=== PATIENT | male | born 2000 | race Caucasian/White ===

== ENCOUNTER 2020-03-24 11:24 | Inpatient (IN) | payer BC, MEDICAID ==
[~2020-03-24] VITALS: Ht 170.2 cm; Wt 68.1 kg
[2020-03-24 12:47] LABS: BASOPHILS % (AUTO) 0.5 % (0.0-2.0); EOSINOPHILS % (AUTO) 0.5 % (1.0-6.0); HEMATOCRIT 47.6 % (41-53); HEMOGLOBIN 15.9 g/dL (13.5-17.5); LYMPHOCYTES # (AUTO) 1.5 K/uL (1.0-4.8); LYMPHOCYTES % (AUTO) 16.1 % (22.0-44.0); MEAN CORPUSCULAR HEMOGLOBIN 29.7 pg (26.0-34.0); MEAN CORPUSCULAR HGB CONC 33.5 G/dL (31.0-37.0); MEAN CORPUSCULAR VOLUME 89 fL (80-100); MONOCYTES # (AUTO) 0.5 K/uL (0.1-1.0); MONOCYTES % (AUTO) 5.8 % (2.0-9.0); NEUTROPHILS % (AUTO) 77.1 % (40.0-70.0); PLATELET COUNT (AUTO) 238 K/uL (150-450); RED BLOOD CELL COUNT(AUTO) 5.36 MIL/uL (4.50-5.90); RED CELL DISTRIBUTION WIDTH 13.7 % (11.5-14.5)
[2020-03-24 12:55] LABS: ANION GAP 8 mmol/L (8-16); CALCIUM, TOTAL 9.4 mg/dL (8.8-10.5); CARBON DIOXIDE 29 mmol/L (22-29); CHLORIDE 100 mmol/L (98-107); CREATININE 0.92 mg/dL (0.60-1.30); GLOMERULAR FILTR. RATE CALC > 60 mL/min (>60); GLUCOSE,RANDOM 95 mg/dL (70-110); POTASSIUM 3.9 mmol/L (3.5-5.1); SODIUM SERUM 137 mmol/L (136-145); UREA NITROGEN, BLOOD 15 mg/dL (7-18)
[2020-03-24] MEDS ORDERED: RISP1TAB27 PO (12:58)
[2020-03-24] MEDS ORDERED: CLON-592 PO (12:58)
[2020-03-24 13:03] LABS: ALANINE AMINOTRANSFERASE 30 U/L (12-78); ALBUMIN 4.4 g/dL (3.4-5.0); ALKALINE PHOSPHATASE 72 U/L (46-116); ASPARTATE AMINOTRANSFERASE 19 U/L (15-37); BILIRUBIN,TOTAL 0.2 mg/dL (0.1-1.0); TOTAL PROTEIN, SERUM 8.2 g/dL (6.4-8.2)
[2020-03-24 13:23] LABS: AMPHET/METH SCREEN,URINE NEGATIVE (NEGATIVE); BARBITURATE SCREEN, URINE NEGATIVE (NEGATIVE); BENZODIAZEPINES SCREEN,URINE NEGATIVE (NEGATIVE); CANNABINOID SCREEN,URINE NEGATIVE (NEGATIVE); COCAINE SCREEN,URINE NEGATIVE (NEGATIVE); METHADONE SCREEN, URINE NEGATIVE (NEGATIVE); OPIATE SCREEN,URINE NEGATIVE (NEGATIVE)
[2020-03-24 13:24] LABS: PHENCYCLIDINE SCREEN,URINE NEGATIVE (NEGATIVE)
[2020-03-24] MEDS ORDERED: HALOPERIDOL 5 MG TABLET PO PRN (16:00)
[2020-03-24] MEDS ORDERED: LORazepam 2 MG TABLET PO PRN (16:00)
[2020-03-24] MEDS ORDERED: ZOLPIDEM TARTRATE 10 MG TABLET PO PRN (16:00)
[2020-03-24 18:25] VITALS: BP 115/74
[2020-03-25 06:55] LABS: CHOL/HDL RATIO 4.6 (4.2-7.3)
[2020-03-25 08:00] VITALS: BP 102/60
[2020-03-25] MEDS ORDERED: MAG HYDROX/AL HYDROX/SIMETH ES 30 ML SUSPENSION UDCUP PO PRN (08:00)
[2020-03-25] MEDS ORDERED: IBUPROFEN 400 MG TABLET PO PRN (08:00)
[2020-03-25] MEDS ORDERED: NICOTINE 14 MG/24 HOUR PATCH TD PRN (08:00)
[2020-03-25] MEDS ORDERED: LOPERAMIDE HCL 2 MG CAPSULE PO PRN (08:00)
[2020-03-25] MEDS ORDERED: PETROLATUM,WHITE 28 GM JELLY TP PRN (08:00)
[2020-03-25] MEDS ORDERED: ACETAMINOPHEN 325 MG TABLET PO PRN (08:00)
[2020-03-25] MEDS ORDERED: ONDANSETRON HCL 4 MG TABLET PO PRN (08:00)
[2020-03-25] MEDS ORDERED: MAGNESIUM HYDROXIDE SUSPENSION 30 ML UDCUP PO PRN (08:00)
[2020-03-25] MEDS ORDERED: CloNIDine HCL 0.1 MG TABLET PO PRN (08:00)
[2020-03-25] MEDS ORDERED: GuaiFENesin/D-METHORPHAN [SUGAR-FREE] 200-20MG/10 ML SYRUP UDCUP PO PRN (08:00)
[2020-03-25] MEDS ORDERED: DOCUSATE SODIUM 100 MG CAPSULE PO PRN (08:00)
[2020-03-25] MEDS ORDERED: ALBUTEROL SULFATE HFA 90 MCG/PUFF 8 GM INHALER IH PRN (08:00)
[2020-03-25 16:44] VITALS: BP 116/77
[2020-03-25] MEDS: RisperiDONE 1 MG TABLET PO SCH (20:09)
[2020-03-26 08:00] VITALS: BP 103/69
[2020-03-26] MEDS: RisperiDONE 1 MG TABLET PO SCH ×2 (09:25→21:04)
[2020-03-26 16:30] VITALS: BP 145/83
[2020-03-27 08:57] VITALS: BP 140/67
[2020-03-27] MEDS: RisperiDONE 1 MG TABLET PO SCH ×2 (09:00→21:08)
[2020-03-27 16:43] VITALS: BP 134/85
[2020-03-28] MEDS: RisperiDONE 1 MG TABLET PO SCH ×2 (09:08→20:45)
[2020-03-28 09:27] VITALS: BP 122/65
[2020-03-28 16:30] VITALS: BP 142/88
[2020-03-29 08:00] VITALS: BP 118/74
[2020-03-29] MEDS: RisperiDONE 1 MG TABLET PO SCH (11:15)
[2020-03-29] MEDS ORDERED: RISP1TAB27 PO ×2 (12:56→12:57)
== END 2020-03-29 15:45 | disposition home or self-care (01) | DRG 885 ==
LOC: EMS 11:32 → 3EI 15:56
PROVIDERS: ADMIT Psychiatry & Neurology Child & Adolescent Psychiatry; ATTEND Psychiatry & Neurology Child & Adolescent Psychiatry
DX: F20.0 Paranoid schizophrenia (principal); G44.209 Tension-type headache, unspecified, not intractable; E78.5 Hyperlipidemia, unspecified; Z79.899 Other long term (current) drug therapy; R10.13 Epigastric pain
CPT/HCPCS: G0480

== ENCOUNTER 2020-10-05 11:21 | Inpatient (IN) | payer BC, MEDICAID, OTHER ==
[~2020-10-05] VITALS: Ht 172.7 cm; Wt 73.5 kg
[~2020-10-05 11:21] MED LIST: RISP1TAB48 PO
[2020-10-05 12:14] LABS: BASOPHILS % (AUTO) 0.5 % (0.0-2.0); EOSINOPHILS % (AUTO) 1.1 % (1.0-6.0); HEMOGLOBIN 16.9 g/dL (13.5-17.5); LYMPHOCYTES # (AUTO) 1.2 K/uL (1.0-4.8); LYMPHOCYTES % (AUTO) 13.7 % (22.0-44.0); MEAN CORPUSCULAR HEMOGLOBIN 29.4 pg (26.0-34.0); MEAN CORPUSCULAR HGB CONC 35.2 G/dL (31.0-37.0); MEAN CORPUSCULAR VOLUME 84 fL (80-100); MONOCYTES # (AUTO) 0.9 K/uL (0.1-1.0); MONOCYTES % (AUTO) 10.4 % (2.0-9.0); NEUTROPHILS # (AUTO) 6.6 K/uL (1.8-7.7); NEUTROPHILS % (AUTO) 74.3 % (40.0-70.0); PLATELET COUNT (AUTO) 290 K/uL (150-450); RED BLOOD CELL COUNT(AUTO) 5.74 MIL/uL (4.50-5.90); RED CELL DISTRIBUTION WIDTH 13.3 % (11.5-14.5)
[2020-10-05 12:27] LABS: ANION GAP 17 mmol/L (8-16); CALCIUM, TOTAL 9.4 mg/dL (8.8-10.5); CARBON DIOXIDE 18 mmol/L (22-29); CHLORIDE 102 mmol/L (98-107); CREATININE 0.97 mg/dL (0.60-1.30); GLOMERULAR FILTR. RATE CALC > 60 mL/min (>60); GLUCOSE,RANDOM 94 mg/dL (70-110); POTASSIUM 3.6 mmol/L (3.5-5.1); SODIUM SERUM 137 mmol/L (136-145); UREA NITROGEN, BLOOD 14 mg/dL (7-18)
[2020-10-05] MEDS ORDERED: LORazepam 1 MG TABLET PO ONE (12:30)
[2020-10-05 12:39] LABS: ALANINE AMINOTRANSFERASE 50 U/L (12-78); ALBUMIN 4.5 g/dL (3.4-5.0); ALKALINE PHOSPHATASE 87 U/L (46-116); ASPARTATE AMINOTRANSFERASE 66 U/L (15-37); BILIRUBIN,TOTAL 0.5 mg/dL (0.1-1.0); TOTAL PROTEIN, SERUM 8.4 g/dL (6.4-8.2)
[2020-10-05 13:34] LABS: COVID AG,FIA SOURCE NASOPHARYNGEAL
[2020-10-05] MEDS ORDERED: HALOPERIDOL 5 MG TABLET PO PRN (14:45)
[2020-10-05] MEDS ORDERED: ZOLPIDEM TARTRATE 10 MG TABLET PO PRN (14:45)
[2020-10-05 15:01] LABS: AMPHET/METH SCREEN,URINE NEGATIVE (NEGATIVE); BARBITURATE SCREEN, URINE NEGATIVE (NEGATIVE); BENZODIAZEPINES SCREEN,URINE NEGATIVE (NEGATIVE); CANNABINOID SCREEN,URINE NEGATIVE (NEGATIVE); COCAINE SCREEN,URINE NEGATIVE (NEGATIVE); METHADONE SCREEN, URINE NEGATIVE (NEGATIVE); OPIATE SCREEN,URINE NEGATIVE (NEGATIVE)
[2020-10-05 15:05] LABS: PHENCYCLIDINE SCREEN,URINE NEGATIVE (NEGATIVE)
[2020-10-05 17:50] VITALS: BP 144/102
[2020-10-05 20:16] VITALS: BP 134/91
[2020-10-06 05:09] VITALS: BP 122/76
[2020-10-06] MEDS ORDERED: DOCUSATE SODIUM 100 MG CAPSULE PO PRN (08:00)
[2020-10-06] MEDS ORDERED: ONDANSETRON HCL 4 MG TABLET PO PRN (08:00)
[2020-10-06] MEDS ORDERED: CloNIDine HCL 0.1 MG TABLET PO PRN (08:00)
[2020-10-06] MEDS ORDERED: NICOTINE 14 MG/24 HOUR PATCH TD PRN (08:00)
[2020-10-06] MEDS ORDERED: MAG HYDROX/AL HYDROX/SIMETH ES 30 ML SUSPENSION UDCUP PO PRN (08:00)
[2020-10-06] MEDS ORDERED: GuaiFENesin/D-METHORPHAN [SUGAR-FREE] 200-20MG/10 ML SYRUP UDCUP PO PRN (08:00)
[2020-10-06] MEDS ORDERED: PETROLATUM,WHITE 28 GM JELLY TP PRN (08:00)
[2020-10-06] MEDS ORDERED: ALBUTEROL SULFATE HFA 90 MCG/PUFF 8 GM INHALER IH PRN (08:00)
[2020-10-06] MEDS ORDERED: ACETAMINOPHEN 325 MG TABLET PO PRN (08:00)
[2020-10-06] MEDS ORDERED: MAGNESIUM HYDROXIDE SUSPENSION 30 ML UDCUP PO PRN (08:00)
[2020-10-06] MEDS ORDERED: LOPERAMIDE HCL 2 MG CAPSULE PO PRN (08:00)
[2020-10-06] MEDS ORDERED: IBUPROFEN 400 MG TABLET PO PRN (08:00)
[2020-10-06 08:27] VITALS: BP 132/84
[2020-10-06 09:12] LABS: CHOL/HDL RATIO 3.1 (4.2-7.3)
[2020-10-06] MEDS: RisperiDONE 1 MG TABLET PO SCH ×2 (13:34→21:30)
[2020-10-06 16:17] VITALS: BP 139/83
[2020-10-07 04:18] VITALS: BP 128/78
[2020-10-07 08:18] VITALS: BP 141/78
[2020-10-07] MEDS: RisperiDONE 1 MG TABLET PO SCH ×2 (09:12→20:32)
[2020-10-07] MEDS: LORazepam 2 MG TABLET PO PRN (09:12)
[2020-10-07 16:28] VITALS: BP 130/90
[2020-10-08 03:39] VITALS: BP 121/73
[2020-10-08 08:44] VITALS: BP 146/90
[2020-10-08] MEDS: RisperiDONE 1 MG TABLET PO SCH ×2 (09:18→21:10)
[2020-10-08 16:14] VITALS: BP 140/80
[2020-10-09 02:58] VITALS: BP 126/81
[2020-10-09 08:47] VITALS: BP 130/80
[2020-10-09] MEDS: LORazepam 2 MG TABLET PO PRN (16:38)
[2020-10-09 18:01] VITALS: BP 127/73
[2020-10-09] MEDS: RisperiDONE 2 MG TABLET PO SCH (22:07)
[2020-10-10 05:31] VITALS: BP 123/81
[2020-10-10] MEDS: RisperiDONE 2 MG TABLET PO SCH ×2 (09:10→20:42)
[2020-10-10 09:27] VITALS: BP 146/91
[2020-10-10 16:16] VITALS: BP 132/84
[2020-10-11 06:34] VITALS: BP 129/81
[2020-10-11] MEDS: RisperiDONE 2 MG TABLET PO SCH ×2 (08:10→21:38)
[2020-10-11 08:55] VITALS: BP 133/85
[2020-10-11 16:24] VITALS: BP 143/84
[2020-10-12 04:23] VITALS: BP 127/74
[2020-10-12 08:09] VITALS: BP 140/88
[2020-10-12] MEDS: RisperiDONE 2 MG TABLET PO SCH ×2 (09:10→20:33)
[2020-10-12 16:20] VITALS: BP 140/80
[2020-10-13 06:32] VITALS: BP 135/81
[2020-10-13 08:36] VITALS: BP 138/81
[2020-10-13] MEDS: RisperiDONE 2 MG TABLET PO SCH (09:25)
[2020-10-13] MEDS ORDERED: RISP2TAB76 PO (13:47)
[2020-10-13 16:32] VITALS: BP 140/80
== END 2020-10-13 17:00 | disposition home or self-care (01) | DRG 750 ==
LOC: EMS 11:25 → B3A 15:49
DX: F20.0 Paranoid schizophrenia (principal); G44.209 Tension-type headache, unspecified, not intractable; R74.01 Elevation of levels of liver transaminase levels; E66.01 Morbid (severe) obesity due to excess calories; K59.00 Constipation, unspecified; Z59.0 Homelessness; Z91.14 Patient's other noncompliance with medication regimen; Z68.24 Body mass index [BMI] 24.0-24.9, adult
CPT/HCPCS: 87426; 99285; G0480

== ENCOUNTER 2021-04-09 19:22 | Emergency (ER) | payer BC, MEDICAID, OTHER ==
[~2021-04-09] VITALS: Ht 172.7 cm; Wt 72.7 kg
[~2021-04-09 19:22] MED LIST changes: -RISP1TAB48 PO; +RISP2TAB76 PO
[2021-04-10] MEDS ORDERED: RisperiDONE 1 MG TABLET PO ONE
[2021-04-10 00:10] VITALS: BP 133/75
== END 2021-04-10 01:05 | disposition home or self-care (01) ==
LOC: EMS 19:24
DX: F41.9 Anxiety disorder, unspecified (principal)
CPT/HCPCS: 99283

== ENCOUNTER 2021-05-31 02:46 | Emergency (ER) | payer OTHER ==
[~2021-05-31] VITALS: Ht 170.2 cm; Wt 81.8 kg
[2021-05-31] MEDS ORDERED: PROP10TA73 PO (03:21)
[2021-05-31] MEDS ORDERED: HALO5TAB23 PO (03:21)
[2021-05-31] MEDS ORDERED: PROP60CA38 PO (03:21)
[2021-05-31] MEDS ORDERED: HYDR50CA9 PO (03:21)
[2021-05-31 03:47] VITALS: BP 129/74
[2021-05-31 03:52] LABS: COVID AG,FIA SOURCE NASOPHARYNGEAL
[2021-05-31 03:58] LABS: BASOPHILS % (AUTO) 0.2 % (0.0-2.0); EOSINOPHILS % (AUTO) 0.3 % (1.0-6.0); HEMATOCRIT 47.3 % (41-53); LYMPHOCYTES # (AUTO) 1.7 K/uL (1.0-4.8); LYMPHOCYTES % (AUTO) 13.4 % (22.0-44.0); MEAN CORPUSCULAR HEMOGLOBIN 29.5 pg (26.0-34.0); MEAN CORPUSCULAR HGB CONC 33.8 G/dL (31.0-37.0); MEAN CORPUSCULAR VOLUME 87 fL (80-100); MONOCYTES # (AUTO) 0.8 K/uL (0.1-1.0); MONOCYTES % (AUTO) 6.1 % (2.0-9.0); NEUTROPHILS # (AUTO) 10.4 K/uL (1.8-7.7); PLATELET COUNT (AUTO) 275 K/uL (150-450); RED BLOOD CELL COUNT(AUTO) 5.43 MIL/uL (4.50-5.90); RED CELL DISTRIBUTION WIDTH 13.1 % (11.5-14.5)
[2021-05-31 04:04] LABS: ANION GAP 8 mmol/L (8-16); CALCIUM, TOTAL 9.1 mg/dL (8.8-10.5); CARBON DIOXIDE 28 mmol/L (22-29); CHLORIDE 103 mmol/L (98-107); CREATININE 0.96 mg/dL (0.60-1.30); GLOMERULAR FILTR. RATE CALC > 60 mL/min (>60); GLUCOSE,RANDOM 104 mg/dL (70-110); POTASSIUM 4.1 mmol/L (3.5-5.1); SODIUM SERUM 139 mmol/L (136-145); UREA NITROGEN, BLOOD 13 mg/dL (7-18)
[2021-05-31 04:09] LABS: ALANINE AMINOTRANSFERASE 25 U/L (12-78); ALBUMIN 4.2 g/dL (3.4-5.0); ALKALINE PHOSPHATASE 71 U/L (46-116); ASPARTATE AMINOTRANSFERASE 16 U/L (15-37); BILIRUBIN,TOTAL 0.6 mg/dL (0.1-1.0); TOTAL PROTEIN, SERUM 8.1 g/dL (6.4-8.2)
[2021-05-31 04:19] LABS: AMPHET/METH SCREEN,URINE NEGATIVE (NEGATIVE); BARBITURATE SCREEN, URINE NEGATIVE (NEGATIVE); BENZODIAZEPINES SCREEN,URINE NEGATIVE (NEGATIVE); CANNABINOID SCREEN,URINE NEGATIVE (NEGATIVE); COCAINE SCREEN,URINE NEGATIVE (NEGATIVE); METHADONE SCREEN, URINE NEGATIVE (NEGATIVE); OPIATE SCREEN,URINE NEGATIVE (NEGATIVE)
[2021-05-31 04:20] LABS: PHENCYCLIDINE SCREEN,URINE NEGATIVE (NEGATIVE)
[2021-05-31] MEDS ORDERED: DiphenhydrAMINE HCL 25 MG CAPSULE PO ONE (05:15)
[2021-05-31] MEDS ORDERED: LORazepam 2 MG/ML VIAL IM ONE (05:30)
[2021-05-31] MEDS ORDERED: LORazepam 2 MG/ML VIAL ONE (05:32)
== END 2021-05-31 06:43 | disposition home or self-care (01) ==
LOC: EMS 02:49
DX: F20.9 Schizophrenia, unspecified (principal); Z79.899 Other long term (current) drug therapy; Z20.822 Contact with and (suspected) exposure to COVID-19
CPT/HCPCS: 36415; 80053; 80307; 85025; 87426; 96372; 99284; G0480; J2060

== ENCOUNTER 2021-12-24 09:16 | Inpatient (IN) | payer MEDICAID, OTHER ==
[~2021-12-24] VITALS: Ht 170.2 cm; Wt 85.0 kg
[~2021-12-24 09:16] MED LIST changes: +HALO5TAB23 PO; +HYDR50CA7 PO; +PROP10TA73 PO; +PROP60CA38 PO
[2021-12-24] MEDS ORDERED: LORazepam 2 MG/ML VIAL IM ONE (09:45)
[2021-12-24] MEDS ORDERED: DiphenhydrAMINE HCL 50 MG/ML VIAL IM ONE (09:45)
[2021-12-24] MEDS ORDERED: HALOPERIDOL LACTATE 5 MG/ML VIAL IM ONE (09:45)
[2021-12-24 09:47] LABS: BASOPHILS % (AUTO) 0.4 % (0.0-2.0); EOSINOPHILS % (AUTO) 1.3 % (1.0-6.0); HEMATOCRIT 47.8 % (41-53); HEMOGLOBIN 16.4 g/dL (13.5-17.5); LYMPHOCYTES # (AUTO) 1.7 K/uL (1.0-4.8); LYMPHOCYTES % (AUTO) 14.3 % (22.0-44.0); MEAN CORPUSCULAR HEMOGLOBIN 29.5 pg (26.0-34.0); MEAN CORPUSCULAR HGB CONC 34.4 G/dL (31.0-37.0); MEAN CORPUSCULAR VOLUME 86 fL (80-100); MONOCYTES # (AUTO) 0.6 K/uL (0.1-1.0); MONOCYTES % (AUTO) 5.2 % (2.0-9.0); NEUTROPHILS # (AUTO) 9.4 K/uL (1.8-7.7); NEUTROPHILS % (AUTO) 78.8 % (40.0-70.0); PLATELET COUNT (AUTO) 288 K/uL (150-450); RED BLOOD CELL COUNT(AUTO) 5.58 MIL/uL (4.50-5.90); RED CELL DISTRIBUTION WIDTH 13.4 % (11.5-14.5)
[2021-12-24 09:56] LABS: ANION GAP 13 mmol/L (8-16); CALCIUM, TOTAL 9.9 mg/dL (8.8-10.5); CARBON DIOXIDE 24 mmol/L (22-29); CHLORIDE 100 mmol/L (98-107); CREATININE 1.05 mg/dL (0.60-1.30); GLOMERULAR FILTR. RATE CALC > 60 mL/min (>60); GLUCOSE,RANDOM 91 mg/dL (70-110); POTASSIUM 3.9 mmol/L (3.5-5.1); SODIUM SERUM 137 mmol/L (136-145); UREA NITROGEN, BLOOD 22 mg/dL (7-18)
[2021-12-24 09:56] LABS: COVID AG,FIA SOURCE NASOPHARYNGEAL
[2021-12-24 10:01] LABS: ALANINE AMINOTRANSFERASE 39 U/L (12-78); ALBUMIN 4.4 g/dL (3.4-5.0); ALKALINE PHOSPHATASE 83 U/L (46-116); ASPARTATE AMINOTRANSFERASE 66 U/L (15-37); TOTAL PROTEIN, SERUM 8.7 g/dL (6.4-8.2)
[2021-12-24 10:06] LABS: AMPHET/METH SCREEN,URINE NEGATIVE (NEGATIVE); BARBITURATE SCREEN, URINE NEGATIVE (NEGATIVE); BENZODIAZEPINES SCREEN,URINE NEGATIVE (NEGATIVE); CANNABINOID SCREEN,URINE NEGATIVE (NEGATIVE); COCAINE SCREEN,URINE NEGATIVE (NEGATIVE); METHADONE SCREEN, URINE NEGATIVE (NEGATIVE); OPIATE SCREEN,URINE NEGATIVE (NEGATIVE)
[2021-12-24 10:07] LABS: PHENCYCLIDINE SCREEN,URINE NEGATIVE (NEGATIVE)
[2021-12-24] MEDS ORDERED: ZOLPIDEM TARTRATE 10 MG TABLET PO PRN (13:45)
[2021-12-24 18:06] VITALS: BP 136/92
[2021-12-25 08:00] VITALS: BP 149/75
[2021-12-25] MEDS ORDERED: LOPERAMIDE HCL 2 MG CAPSULE PO PRN (08:15)
[2021-12-25] MEDS ORDERED: DOCUSATE SODIUM 100 MG CAPSULE PO PRN (08:15)
[2021-12-25] MEDS ORDERED: ACETAMINOPHEN 325 MG TABLET PO PRN (08:15)
[2021-12-25] MEDS ORDERED: PETROLATUM,WHITE 28 GM JELLY TP PRN (08:15)
[2021-12-25] MEDS ORDERED: MAG HYDROX/AL HYDROX/SIMETH ES 30 ML SUSPENSION UDCUP PO PRN (08:15)
[2021-12-25] MEDS ORDERED: GuaiFENesin/D-METHORPHAN [SUGAR-FREE] 200-20MG/10 ML SYRUP UDCUP PO PRN (08:15)
[2021-12-25] MEDS ORDERED: MAGNESIUM HYDROXIDE SUSPENSION 30 ML UDCUP PO PRN (08:15)
[2021-12-25] MEDS ORDERED: NICOTINE 14 MG/24 HOUR PATCH TD PRN (08:15)
[2021-12-25] MEDS ORDERED: ALBUTEROL SULFATE HFA 90 MCG/PUFF 8 GM INHALER IH PRN (08:15)
[2021-12-25] MEDS ORDERED: ONDANSETRON HCL 4 MG TABLET PO PRN (08:15)
[2021-12-25] MEDS ORDERED: IBUPROFEN 400 MG TABLET PO PRN (08:15)
[2021-12-25] MEDS: PROPRANOLOL HCL 10 MG TABLET PO SCH ×4 (10:29→17:00)
[2021-12-25] MEDS ORDERED: PROP60CA2 PO (10:43)
[2021-12-25] MEDS ORDERED: ILOP6TAB2 PO (10:43)
[2021-12-25] MEDS ORDERED: LITH300CRT PO (10:43)
[2021-12-25 16:21] VITALS: BP 119/82
[2021-12-25] MEDS ORDERED: ILOPERIDONE 2 MG TABLET PO SCH (17:00)
[2021-12-25] MEDS ORDERED: LITHIUM CARBONATE 300 MG ER TABLET PO SCH (17:00)
[2021-12-25] MEDS: ILOPERIDONE 4 MG TABLET PO SCH (17:20)
[2021-12-25] MEDS: LITHIUM CARBONATE 450 MG ER TABLET PO SCH (17:21)
[2021-12-26] MEDS: LITHIUM CARBONATE 450 MG ER TABLET PO SCH ×2 (08:25→16:26)
[2021-12-26] MEDS: ILOPERIDONE 4 MG TABLET PO SCH ×2 (08:26→16:26)
[2021-12-26] MEDS: PROPRANOLOL HCL 10 MG TABLET PO SCH ×2 (08:27→16:26)
[2021-12-26 08:35] VITALS: BP 148/93
[2021-12-26] MEDS ORDERED: BENZ1TAB96 PO (12:45)
[2021-12-26] MEDS ORDERED: OMEG-189 PO (12:45)
[2021-12-26 16:05] VITALS: BP 107/70
[2021-12-26] MEDS: HALOPERIDOL 5 MG TABLET PO PRN (19:00)
[2021-12-26] MEDS: LORazepam 2 MG TABLET PO PRN (19:00)
[2021-12-27 08:11] VITALS: BP 132/74
[2021-12-27] MEDS: ILOPERIDONE 4 MG TABLET PO SCH ×2 (09:04→16:31)
[2021-12-27] MEDS: LITHIUM CARBONATE 450 MG ER TABLET PO SCH ×2 (09:05→16:31)
[2021-12-27] MEDS: PROPRANOLOL HCL 10 MG TABLET PO SCH ×2 (09:05→16:31)
[2021-12-27 16:11] VITALS: BP 141/83
[2021-12-27] MEDS: HALOPERIDOL 5 MG TABLET PO PRN (16:34)
[2021-12-27] MEDS: LORazepam 2 MG TABLET PO PRN (16:34)
[2021-12-28] MEDS: ILOPERIDONE 2 MG TABLET PO SCH ×2 (06:48→17:00)
[2021-12-28 08:05] VITALS: BP 117/68
[2021-12-28] MEDS: PROPRANOLOL HCL 10 MG TABLET PO SCH ×2 (08:31→17:00)
[2021-12-28] MEDS: LITHIUM CARBONATE 450 MG ER TABLET PO SCH ×2 (08:31→17:00)
[2021-12-28 16:37] VITALS: BP 129/89
[2021-12-28] MEDS: HALOPERIDOL 5 MG TABLET PO PRN (17:42)
[2021-12-28] MEDS: LORazepam 2 MG TABLET PO PRN (17:42)
[2021-12-29] MEDS: ILOPERIDONE 2 MG TABLET PO SCH ×2 (06:36→16:44)
[2021-12-29 08:00] VITALS: BP 154/86
[2021-12-29] MEDS: LITHIUM CARBONATE 450 MG ER TABLET PO SCH ×2 (09:04→16:44)
[2021-12-29] MEDS: LORazepam 2 MG TABLET PO PRN ×2 (09:05→16:44)
[2021-12-29] MEDS: PROPRANOLOL HCL 10 MG TABLET PO SCH ×2 (09:05→16:44)
[2021-12-29 16:44] VITALS: BP 130/87
[2021-12-29 16:50] VITALS: BP 130/87
[2021-12-30] MEDS: ILOPERIDONE 2 MG TABLET PO SCH ×2 (06:12→16:44)
[2021-12-30 08:04] VITALS: BP 164/92
[2021-12-30 09:00] LABS: BASOPHILS % (AUTO) 0.5 % (0.0-2.0); EOSINOPHILS % (AUTO) 5.5 % (1.0-6.0); HEMATOCRIT 45.9 % (41-53); HEMOGLOBIN 15.6 g/dL (13.5-17.5); LYMPHOCYTES # (AUTO) 1.1 K/uL (1.0-4.8); LYMPHOCYTES % (AUTO) 12.8 % (22.0-44.0); MEAN CORPUSCULAR HEMOGLOBIN 29.2 pg (26.0-34.0); MEAN CORPUSCULAR VOLUME 86 fL (80-100); MONOCYTES # (AUTO) 0.6 K/uL (0.1-1.0); MONOCYTES % (AUTO) 6.6 % (2.0-9.0); NEUTROPHILS # (AUTO) 6.5 K/uL (1.8-7.7); NEUTROPHILS % (AUTO) 74.6 % (40.0-70.0); PLATELET COUNT (AUTO) 234 K/uL (150-450); RED BLOOD CELL COUNT(AUTO) 5.33 MIL/uL (4.50-5.90)
[2021-12-30] MEDS: LITHIUM CARBONATE 450 MG ER TABLET PO SCH (09:18)
[2021-12-30] MEDS: PROPRANOLOL HCL 10 MG TABLET PO SCH ×2 (09:18→16:20)
[2021-12-30] MEDS: LORazepam 2 MG TABLET PO PRN ×2 (09:18→16:20)
[2021-12-30 16:17] VITALS: BP 138/90
[2021-12-30] MEDS: HALOPERIDOL 5 MG TABLET PO PRN (16:20)
[2021-12-30] MEDS: LITHIUM CARBONATE 600 MG CAPSULE PO SCH (18:00)
[2021-12-31 06:29] LABS: COVID AG,FIA SOURCE NASAL SWAB
[2021-12-31] MEDS: PROPRANOLOL HCL 10 MG TABLET PO SCH ×2 (08:08→16:49)
[2021-12-31] MEDS: LITHIUM CARBONATE 600 MG CAPSULE PO SCH ×2 (08:08→16:49)
[2021-12-31] MEDS: ILOPERIDONE 2 MG TABLET PO SCH ×2 (08:09→16:50)
[2021-12-31] MEDS: LORazepam 2 MG TABLET PO PRN ×2 (08:09→16:50)
[2021-12-31 09:22] VITALS: BP 116/80
[2021-12-31 12:05] LABS: BASOPHILS % (AUTO) 0.5 % (0.0-2.0); EOSINOPHILS % (AUTO) 5.1 % (1.0-6.0); HEMATOCRIT 45.4 % (41-53); HEMOGLOBIN 15.5 g/dL (13.5-17.5); LYMPHOCYTES # (AUTO) 1.4 K/uL (1.0-4.8); LYMPHOCYTES % (AUTO) 16.7 % (22.0-44.0); MEAN CORPUSCULAR HEMOGLOBIN 29.5 pg (26.0-34.0); MEAN CORPUSCULAR HGB CONC 34.2 G/dL (31.0-37.0); MEAN CORPUSCULAR VOLUME 86 fL (80-100); MONOCYTES # (AUTO) 0.5 K/uL (0.1-1.0); NEUTROPHILS # (AUTO) 5.9 K/uL (1.8-7.7); NEUTROPHILS % (AUTO) 71.7 % (40.0-70.0); PLATELET COUNT (AUTO) 264 K/uL (150-450); RED BLOOD CELL COUNT(AUTO) 5.27 MIL/uL (4.50-5.90); RED CELL DISTRIBUTION WIDTH 12.9 % (11.5-14.5)
[2021-12-31 16:30] VITALS: BP 104/57
[2021-12-31] MEDS: HALOPERIDOL 5 MG TABLET PO PRN (16:51)
[2022-01-01 08:04] VITALS: BP 111/71
[2022-01-01] MEDS: LITHIUM CARBONATE 600 MG CAPSULE PO SCH ×2 (08:10→16:29)
[2022-01-01] MEDS: PROPRANOLOL HCL 10 MG TABLET PO SCH ×2 (08:10→16:28)
[2022-01-01] MEDS: LORazepam 2 MG TABLET PO PRN ×2 (08:10→16:29)
[2022-01-01] MEDS: ILOPERIDONE 2 MG TABLET PO SCH ×2 (08:11→16:28)
[2022-01-01 08:18] LABS: BASOPHILS % (AUTO) 0.7 % (0.0-2.0); EOSINOPHILS % (AUTO) 6.8 % (1.0-6.0); HEMATOCRIT 45.7 % (41-53); HEMOGLOBIN 15.8 g/dL (13.5-17.5); LYMPHOCYTES # (AUTO) 1.7 K/uL (1.0-4.8); LYMPHOCYTES % (AUTO) 21.8 % (22.0-44.0); MEAN CORPUSCULAR HEMOGLOBIN 29.6 pg (26.0-34.0); MEAN CORPUSCULAR HGB CONC 34.7 G/dL (31.0-37.0); MEAN CORPUSCULAR VOLUME 85 fL (80-100); MONOCYTES # (AUTO) 0.5 K/uL (0.1-1.0); MONOCYTES % (AUTO) 6.6 % (2.0-9.0); NEUTROPHILS % (AUTO) 64.1 % (40.0-70.0); PLATELET COUNT (AUTO) 254 K/uL (150-450); RED BLOOD CELL COUNT(AUTO) 5.36 MIL/uL (4.50-5.90)
[2022-01-01] MEDS: HALOPERIDOL 5 MG TABLET PO PRN (16:29)
[2022-01-01 16:55] VITALS: BP 115/72
[2022-01-01 16:57] VITALS: BP 115/71
[2022-01-02] MEDS: LITHIUM CARBONATE 600 MG CAPSULE PO SCH ×2 (07:25→16:19)
[2022-01-02] MEDS: PROPRANOLOL HCL 10 MG TABLET PO SCH ×2 (07:25→16:19)
[2022-01-02] MEDS: LORazepam 2 MG TABLET PO PRN ×2 (07:25→16:19)
[2022-01-02] MEDS: HALOPERIDOL 5 MG TABLET PO PRN ×2 (07:25→16:19)
[2022-01-02] MEDS: ILOPERIDONE 2 MG TABLET PO SCH ×2 (07:26→16:19)
[2022-01-02 08:35] VITALS: BP 125/63
[2022-01-02 16:14] VITALS: BP 103/64
[2022-01-03 09:08] VITALS: BP 116/97
[2022-01-03] MEDS: ILOPERIDONE 2 MG TABLET PO SCH ×2 (10:14→17:13)
[2022-01-03] MEDS: PROPRANOLOL HCL 10 MG TABLET PO SCH ×2 (10:14→17:13)
[2022-01-03] MEDS: LORazepam 2 MG TABLET PO PRN ×2 (10:14→14:14)
[2022-01-03] MEDS: LITHIUM CARBONATE 600 MG CAPSULE PO SCH ×2 (10:14→17:13)
[2022-01-03 16:15] VITALS: BP 121/79
[2022-01-04] MEDS: PROPRANOLOL HCL 10 MG TABLET PO SCH (08:15)
[2022-01-04] MEDS: LITHIUM CARBONATE 600 MG CAPSULE PO SCH (08:15)
[2022-01-04] MEDS: ILOPERIDONE 2 MG TABLET PO SCH (08:15)
[2022-01-04 09:01] VITALS: BP 131/81
[2022-01-04] MEDS ORDERED: OMEG-189 PO (10:50)
[2022-01-04] MEDS ORDERED: LITH600C5 PO (10:50)
[2022-01-04] MEDS ORDERED: ILOP6TAB2 PO (10:50)
[2022-01-04] MEDS ORDERED: PROP10TA72 PO (10:50)
== END 2022-01-04 13:10 | disposition home or self-care (01) | DRG 750 ==
LOC: EMS 09:17 → 3EC 16:39 → 3EI 01-03 15:03
PROVIDERS: ADMIT Psychiatry & Neurology Psychiatry; ATTEND Psychiatry & Neurology Psychiatry
DX: F25.0 Schizoaffective disorder, bipolar type (principal); Z59.00 Homelessness unspecified; D64.9 Anemia, unspecified; F41.9 Anxiety disorder, unspecified; Z20.822 Contact with and (suspected) exposure to COVID-19; Z91.14 Patient's other noncompliance with medication regimen; Z79.899 Other long term (current) drug therapy
CPT/HCPCS: 80053; 80178; 85025; 99285; G0480; J1200; J1630; J2060

== ENCOUNTER 2022-06-04 13:23 | Emergency (ER) | payer MEDICAID, OTHER ==
[~2022-06-04] VITALS: Ht 172.7 cm; Wt 79.5 kg
[~2022-06-04 13:23] MED LIST changes: -HALO5TAB23 PO; -HYDR50CA7 PO; +ILOP6TAB2 PO; +LITH600C5 PO; +OMEG-189 PO; +PROP10TA72 PO; -PROP10TA73 PO; -PROP60CA38 PO; -RISP2TAB76 PO
[2022-06-04] MEDS ORDERED: LUMA42CA PO (13:32)
[2022-06-04] MEDS ORDERED: DIVA-80 PO (13:32)
[2022-06-04] MEDS ORDERED: LITH300CRT PO (13:33)
[2022-06-04 14:37] LABS: BASOPHILS % (AUTO) 0.4 % (0.0-2.0); EOSINOPHILS % (AUTO) 0.4 % (1.0-6.0); HEMATOCRIT 47.2 % (41-53); HEMOGLOBIN 16.1 g/dL (13.5-17.5); LYMPHOCYTES # (AUTO) 0.9 K/uL (1.0-4.8); MEAN CORPUSCULAR HEMOGLOBIN 30.5 pg (26.0-34.0); MEAN CORPUSCULAR HGB CONC 34.1 G/dL (31.0-37.0); MEAN CORPUSCULAR VOLUME 90 fL (80-100); MONOCYTES # (AUTO) 0.6 K/uL (0.1-1.0); MONOCYTES % (AUTO) 5.6 % (2.0-9.0); NEUTROPHILS # (AUTO) 8.4 K/uL (1.8-7.7); NEUTROPHILS % (AUTO) 84.6 % (40.0-70.0); PLATELET COUNT (AUTO) 254 K/uL (150-450); RED BLOOD CELL COUNT(AUTO) 5.28 MIL/uL (4.50-5.90); RED CELL DISTRIBUTION WIDTH 13.5 % (11.5-14.5)
[2022-06-04 15:02] LABS: ANION GAP 4 mmol/L (8-16); CALCIUM, TOTAL 9.7 mg/dL (8.8-10.5); CARBON DIOXIDE 29 mmol/L (22-29); CHLORIDE 101 mmol/L (98-107); CREATININE 1.18 mg/dL (0.60-1.30); GLUCOSE,RANDOM 123 mg/dL (70-110); POTASSIUM 4.1 mmol/L (3.5-5.1); SODIUM SERUM 134 mmol/L (136-145); UREA NITROGEN, BLOOD 10 mg/dL (7-18)
[2022-06-04 15:07] LABS: GLOMERULAR FILTR. RATE CALC > 60 mL/min (>60)
[2022-06-04 15:17] LABS: ALANINE AMINOTRANSFERASE 28 U/L (12-78); ALBUMIN 4.2 g/dL (3.4-5.0); ALKALINE PHOSPHATASE 67 U/L (46-116); ASPARTATE AMINOTRANSFERASE 13 U/L (15-37); BILIRUBIN,TOTAL 0.4 mg/dL (0.1-1.0); VALPROIC ACID 48 mcg/mL (50-100)
[2022-06-04] MEDS ORDERED: SODIUM CHLORIDE 0.9% 1,000 ML IV ONE (15:30)
[2022-06-04 15:56] LABS: COVID AG,FIA SOURCE NASOPHARYNGEAL
[2022-06-04 16:03] LABS: SALICYLATE < 2.8 mg/dL (2.8-20.0)
[2022-06-04 16:06] LABS: ACETAMINOPHEN < 2 mcg/mL (10-30)
[2022-06-04 16:37] LABS: AMPHET/METH SCREEN,URINE NEGATIVE (NEGATIVE); BARBITURATE SCREEN, URINE NEGATIVE (NEGATIVE); BENZODIAZEPINES SCREEN,URINE NEGATIVE (NEGATIVE); CANNABINOID SCREEN,URINE NEGATIVE (NEGATIVE); COCAINE SCREEN,URINE NEGATIVE (NEGATIVE); METHADONE SCREEN, URINE NEGATIVE (NEGATIVE); OPIATE SCREEN,URINE NEGATIVE (NEGATIVE)
[2022-06-04 16:41] LABS: PHENCYCLIDINE SCREEN,URINE NEGATIVE (NEGATIVE)
[2022-06-04 18:41] VITALS: BP 128/72
[2022-06-04] MEDS ORDERED: LORA-999 PO (18:43)
[2022-06-04] MEDS ORDERED: HALO2 PO (18:44)
[2022-06-04] MEDS ORDERED: HYDR-4808 PO (18:44)
[2022-06-04] MEDS ORDERED: LORazepam 1 MG TABLET PO ONE (19:30)
[2022-06-04 20:38] LABS: LITHIUM 1.2 mmol/L (0.60-1.20)
== END 2022-06-04 19:52 | disposition home or self-care (01) ==
LOC: EMS 13:23
DX: F20.9 Schizophrenia, unspecified (principal); F31.9 Bipolar disorder, unspecified; Z20.822 Contact with and (suspected) exposure to COVID-19
CPT/HCPCS: 99284; 96360; 87426; 80053; 80164; 82140; 85025; 80307; 80178; 36415; G0480; J7030; G0481

== ENCOUNTER 2022-06-15 16:38 | Emergency (ER) | payer OTHER ==
[~2022-06-15] VITALS: Ht 172.7 cm; Wt 72.7 kg
[~2022-06-15 16:38] MED LIST changes: +DIVA-80 PO; +HALO2 PO; +HYDR-4808 PO; -ILOP6TAB2 PO; +LITH300CRT PO; -LITH600C5 PO; +LORA-999 PO; +LUMA42CA PO; -PROP10TA72 PO
[2022-06-15 16:41] VITALS: BP 141/96
== END 2022-06-15 18:54 | disposition left against medical advice (07) ==
LOC: EMS 16:45
DX: Z53.21 Procedure and treatment not carried out due to patient leaving prior to being seen by health care provider (principal)

== ENCOUNTER 2022-06-19 14:53 | Inpatient (IN) | payer MEDICAID ==
[~2022-06-19] VITALS: Ht 170.2 cm; Wt 87.5 kg
[2022-06-19] MEDS ORDERED: ACETAMINOPHEN 325 MG TABLET PO PRN (16:30)
[2022-06-19] MEDS ORDERED: PROMETHAZINE HCL 25 MG TABLET PO PRN (16:30)
[2022-06-19] MEDS ORDERED: MAG HYDROX/AL HYDROX/SIMETH ES 30 ML SUSPENSION UDCUP PO PRN (16:30)
[2022-06-19] MEDS ORDERED: ZOLPIDEM TARTRATE 10 MG TABLET PO PRN (16:30)
[2022-06-19] MEDS ORDERED: MAGNESIUM HYDROXIDE SUSPENSION 30 ML UDCUP PO PRN (16:30)
[2022-06-19] MEDS ORDERED: TUBERCULIN, PURIFIED PROTEIN DERIVATIVE 5 TU/0.1 ML SYRINGE ID ONE (16:30)
[2022-06-19] MEDS ORDERED: OLANZapine 5 MG RAPDIS TABLET PO PRN (16:30)
[2022-06-19] MEDS ORDERED: HydrOXYzine PAMOATE 50 MG CAPSULE PO PRN (16:30)
[2022-06-19] MEDS ORDERED: GuaiFENesin/D-METHORPHAN [SUGAR-FREE] 200-20MG/10 ML SYRUP UDCUP PO PRN (16:30)
[2022-06-19] MEDS ORDERED: LOPERAMIDE HCL 2 MG CAPSULE PO PRN (16:30)
[2022-06-19 16:41] LABS: GLUCOMETER DEV NAME(LOC) POC.BV
[2022-06-19 17:29] VITALS: BP 148/89
[2022-06-19] MEDS: LORazepam 2 MG TABLET PO PRN (17:38)
[2022-06-19] MEDS: THIAMINE 100 MG TABLET PO SCH (17:38)
[2022-06-19] MEDS ORDERED: INFLUENZA VIRUS VACCINE QVS 2022-23 (6MO+)/PF 60 MCG/0.5 ML SYRINGE IM. ONE (18:15)
[2022-06-19] MEDS: MELATONIN 5 MG TABLET PO SCH (20:03)
[2022-06-19] MEDS: DIVALPROEX SODIUM 500 MG ER TABLET PO SCH (20:03)
[2022-06-19] MEDS: OLANZapine 5 MG RAPDIS TABLET PO SCH (20:03)
[2022-06-20 00:14] VITALS: BP 139/83
[2022-06-20 07:06] LABS: BASOPHILS % (AUTO) 0.5 % (0.0-2.0); EOSINOPHILS % (AUTO) 2.6 % (1.0-6.0); HEMATOCRIT 43.9 % (41-53); HEMOGLOBIN 14.7 g/dL (13.5-17.5); LYMPHOCYTES # (AUTO) 2.1 K/uL (1.0-4.8); MEAN CORPUSCULAR HEMOGLOBIN 30.1 pg (26.0-34.0); MEAN CORPUSCULAR HGB CONC 33.4 G/dL (31.0-37.0); MEAN CORPUSCULAR VOLUME 90 fL (80-100); MONOCYTES # (AUTO) 0.5 K/uL (0.1-1.0); MONOCYTES % (AUTO) 7.7 % (2.0-9.0); NEUTROPHILS # (AUTO) 4.2 K/uL (1.8-7.7); NEUTROPHILS % (AUTO) 59.2 % (40.0-70.0); PLATELET COUNT (AUTO) 257 K/uL (150-450); RED BLOOD CELL COUNT(AUTO) 4.88 MIL/uL (4.50-5.90); RED CELL DISTRIBUTION WIDTH 13.4 % (11.5-14.5)
[2022-06-20 07:30] LABS: HEMOGLOBIN A1C 4.7 % (3.8-5.6)
[2022-06-20 07:39] LABS: ALANINE AMINOTRANSFERASE 19 U/L (12-78); ALBUMIN 3.5 g/dL (3.4-5.0); ALKALINE PHOSPHATASE 59 U/L (46-116); ANION GAP 6 mmol/L (8-16); ASPARTATE AMINOTRANSFERASE 13 U/L (15-37); BILIRUBIN,TOTAL 0.3 mg/dL (0.1-1.0); CALCIUM, TOTAL 9.4 mg/dL (8.8-10.5); CARBON DIOXIDE 30 mmol/L (22-29); CHLORIDE 104 mmol/L (98-107); CHOL/HDL RATIO 4.5 (4.2-7.3); CHOLESTEROL 150 mg/dL (131-200); CREATININE 0.96 mg/dL (0.60-1.30); FREE T4 (FREE THYROXINE) 0.82 ng/dL (0.76-1.46); GLUCOSE,RANDOM 82 mg/dL (70-110); HDL CHOLESTEROL 33 mg/dL (40-60); LDL CHOL (CALC.) 81 mg/dL (0-130); POTASSIUM 3.9 mmol/L (3.5-5.1); SODIUM SERUM 140 mmol/L (136-145); THYROID STIMULATING HORMONE 2.25 uIU/mL (0.36-3.74); TRIGLYCERIDES 181 mg/dL (15-150); UREA NITROGEN, BLOOD 9 mg/dL (7-18)
[2022-06-20 07:41] LABS: GLOMERULAR FILTR. RATE CALC > 60 mL/min (>60)
[2022-06-20 08:28] VITALS: BP 126/74
[2022-06-20] MEDS: FOLIC ACID 1 MG TABLET PO SCH (09:04)
[2022-06-20] MEDS: OMEGA-3/DHA/EPA/FISH OIL 1,000 MG CAPSULE PO SCH (09:04)
[2022-06-20] MEDS: MULTIVITAMINS WITH MINERALS, THERAPEUTIC TABLET PO SCH (09:05)
[2022-06-20] MEDS: NALTREXONE HCL 50 MG TABLET PO SCH (09:05)
[2022-06-20] MEDS: THIAMINE 100 MG TABLET PO SCH ×2 (09:05→16:37)
[2022-06-20] MEDS ORDERED: PALIPERIDONE PALMITATE 234 MG/1.5 ML SYRINGE IM ONE (16:00)
[2022-06-20 16:33] VITALS: BP 128/73
[2022-06-20] MEDS: LORazepam 2 MG TABLET PO PRN (16:38)
[2022-06-20] MEDS: MELATONIN 5 MG TABLET PO SCH (20:03)
[2022-06-20] MEDS: DIVALPROEX SODIUM 500 MG ER TABLET PO SCH (20:03)
[2022-06-20] MEDS: OLANZapine 5 MG RAPDIS TABLET PO SCH (20:04)
[2022-06-20] MEDS ORDERED: OLANZapine 10 MG RAPDIS TABLET PO SCH (21:00)
[2022-06-21 00:25] VITALS: BP 105/72
[2022-06-21 08:03] VITALS: BP 115/70
[2022-06-21] MEDS: NALTREXONE HCL 50 MG TABLET PO SCH (08:45)
[2022-06-21] MEDS: FOLIC ACID 1 MG TABLET PO SCH (08:45)
[2022-06-21] MEDS: MULTIVITAMINS WITH MINERALS, THERAPEUTIC TABLET PO SCH (08:45)
[2022-06-21] MEDS: OMEGA-3/DHA/EPA/FISH OIL 1,000 MG CAPSULE PO SCH (08:45)
[2022-06-21] MEDS: THIAMINE 100 MG TABLET PO SCH ×2 (08:45→16:53)
[2022-06-21] MEDS ORDERED: OMEG-135 PO (14:19)
[2022-06-21] MEDS ORDERED: PALI156D IM (14:19)
[2022-06-21] MEDS ORDERED: DIVA-80 PO (14:19)
[2022-06-21] MEDS ORDERED: NALT50TA PO (14:19)
[2022-06-21] MEDS ORDERED: MELA5TAB40 PO (14:19)
[2022-06-21 16:57] VITALS: BP 128/81
[2022-06-21] MEDS: DIVALPROEX SODIUM 500 MG ER TABLET PO SCH (20:06)
[2022-06-21] MEDS: MELATONIN 5 MG TABLET PO SCH (20:08)
[2022-06-21] MEDS ORDERED: OLANZapine 10 MG RAPDIS TABLET PO SCH (21:00)
[2022-06-22 05:56] VITALS: BP 122/79
[2022-06-22 08:01] VITALS: BP 115/59
[2022-06-22] MEDS: FOLIC ACID 1 MG TABLET PO SCH (09:13)
[2022-06-22] MEDS: MULTIVITAMINS WITH MINERALS, THERAPEUTIC TABLET PO SCH (09:13)
[2022-06-22] MEDS: NALTREXONE HCL 50 MG TABLET PO SCH (09:13)
[2022-06-22] MEDS: OMEGA-3/DHA/EPA/FISH OIL 1,000 MG CAPSULE PO SCH (09:14)
[2022-06-22] MEDS: THIAMINE 100 MG TABLET PO SCH (09:14)
[2022-06-24] MEDS ORDERED: PALIPERIDONE PALMITATE 156 MG/ML SYRINGE IM ONE (09:00)
== END 2022-06-22 11:10 | disposition home or self-care (01) | DRG 750 ==
LOC: B2S 16:57
PROVIDERS: ADMIT Psychiatry & Neurology Psychiatry; ATTEND Psychiatry & Neurology Psychiatry
DX: F25.1 Schizoaffective disorder, depressive type (principal); F41.9 Anxiety disorder, unspecified; Z20.822 Contact with and (suspected) exposure to COVID-19; Z59.9 Problem related to housing and economic circumstances, unspecified; Z63.9 Problem related to primary support group, unspecified; Z65.3 Problems related to other legal circumstances; Z55.9 Problems related to education and literacy, unspecified; Z28.21 Immunization not carried out because of patient refusal
CPT/HCPCS: 80053; 80061; 83036; 84439; 84443; 85025; 86592; Q9967; 36415-L1; 36415-TC; J2426; Z7610